=== PATIENT | female | born 1950 | race Caucasian/White ===

== ENCOUNTER → 2024-06-03 11:37 | Outpatient (REF) | payer MEDICARE, BC, SELFPAY | LOC: WDC 11:37 | PROVIDERS: ATTENDING PHYSICIAN Internal Medicine | DX: Z12.31 Encounter for screening mammogram for malignant neoplasm of breast (principal) | CPT/HCPCS: 77063; 77067 ==

== ENCOUNTER → 2024-07-04 14:11 | Outpatient (REF) | payer MEDICARE, BC, SELFPAY | LOC: RAD 14:11 | PROVIDERS: ATTENDING PHYSICIAN Internal Medicine | DX: M81.0 Age-related osteoporosis without current pathological fracture (principal) | CPT/HCPCS: 77080 ==

== ENCOUNTER → 2025-06-04 12:55 | Outpatient (REF) | payer MEDICARE, BC, SELFPAY | LOC: WDC 12:55 | PROVIDERS: ATTENDING PHYSICIAN Internal Medicine | DX: Z12.31 Encounter for screening mammogram for malignant neoplasm of breast (principal) | CPT/HCPCS: 77063; 77067 ==